=== PATIENT | male | born 2000 | race Caucasian/White ===

== ENCOUNTER 2020-11-21 00:21 | Emergency (ER) | payer BC ==
[~2020-11-21] VITALS: Ht 193 cm; Wt 114.0 kg
== END 2020-11-21 03:27 | disposition home or self-care (01) ==
LOC: ED 00:21
DX: U07.1 COVID-19 (principal); F17.200 Nicotine dependence, unspecified, uncomplicated

== ENCOUNTER 2022-12-08 03:07 | Emergency (ER) | payer BC ==
[~2022-12-08] VITALS: Ht 187.9 cm; Wt 142.9 kg
[2022-12-08 03:34] LABS: BASO # 0.1 10*3/uL (0.0-0.1); BASO % 0.6 % (0.0-1.0); EOS # 0.3 10*3/uL (0.0-0.4); EOS % 3.2 % (1.0-4.0); HEMATOCRIT 46.4 % (42.0-52.0); LYMPH # 3.3 10*3/uL (1.3-4.4); LYMPH % 36.8 % (27.0-41.0); MEAN CELL VOLUME 89.4 fl (80.0-94.0); MEAN CORPUSCULAR HGB 31.2 pg (27.0-31.0); MEAN CORPUSCULAR HGB CONC 34.9 g/dl (33.0-37.0); MEAN PLATELET VOLUME 10.5 fl (9.6-12.3); MONO # 0.9 10*3/uL (0.1-1.0); MONO % 10.2 % (3.0-9.0); NEUT # 4.3 10*3/uL (2.3-7.9); PLATELET COUNT AUTOMATED 284 10*3/uL (130-400); RED BLOOD COUNT 5.19 10*6/uL (4.50-5.90); RED CELL DISTRI WIDTH 12.7 % (0-14.5); WHITE BLOOD COUNT 8.8 10*3/uL (4.8-10.8)
[2022-12-08 03:45] LABS: ACT PARTIAL THROMBO TIME 26.7 SECONDS (20.0-32.1)
[2022-12-08 03:59] LABS: ALKALINE PHOSPHATASE 75 U/L (46-116); BUN 9 mg/dl (9-23); CHLORIDE 106 mmol/L (98-107); LIPASE 36 U/L (12-53); POTASSIUM 3.6 mmol/L (3.4-5.1); SGPT/ALT 43 U/L (5-49); TOTAL PROTEIN 7.5 gm/dL (6.0-8.0)
[2022-12-08] MEDS ORDERED: MELOXICAM15 MG PO ×2 (06:09→06:12)
== END 2022-12-08 06:16 | disposition home or self-care (01) ==
LOC: ED 03:07
PROVIDERS: Internal Medicine
DX: M94.0 Chondrocostal junction syndrome [Tietze] (principal); M79.601 Pain in right arm; M54.9 Dorsalgia, unspecified; R07.89 Other chest pain

== ENCOUNTER 2023-09-26 05:12 | Emergency (ER) | payer BC ==
[~2023-09-26] VITALS: Ht 187.9 cm; Wt 131.5 kg
[~2023-09-26 05:12] MED LIST: MELOXICAM15 MG PO
[2023-09-26] MEDS ORDERED: MG-AL HYDROXIDE/SIMETICONE 30 ML UDC PO STA (05:37)
[2023-09-26] MEDS ORDERED: Lidocaine Hydrochloride 15 ML UDC PO STA (05:37)
[2023-09-26] MEDS ORDERED: Dicyclomine Hydrochloride 20 MG/10 ML OSYR PO STA (05:37)
[2023-09-26] MEDS ORDERED: SODIUM CHLORIDE 0.9% 1,000 ML IV ONE (06:40)
[2023-09-26] MEDS ORDERED: MORPHINE Sulfate 2 MG/ML SYR IV ONE (06:50)
[2023-09-26 06:58] LABS: BASO % 0.3 % (0.0-1.0); EOS # 0.2 10*3/uL (0.0-0.4); EOS % 1.7 % (1.0-4.0); LYMPH # 1.8 10*3/uL (1.3-4.4); LYMPH % 19.4 % (27.0-41.0); MEAN CELL VOLUME 87.5 fl (80.0-94.0); MEAN CORPUSCULAR HGB 30.2 pg (27.0-31.0); MEAN CORPUSCULAR HGB CONC 34.5 g/dl (33.0-37.0); MEAN PLATELET VOLUME 10.4 fl (9.6-12.3); MONO # 0.8 10*3/uL (0.1-1.0); MONO % 8.3 % (3.0-9.0); NEUT # 6.4 10*3/uL (2.3-7.9); PLATELET COUNT AUTOMATED 265 10*3/uL (130-400); RED BLOOD COUNT 5.37 10*6/uL (4.50-5.90); RED CELL DISTRI WIDTH 12.5 % (0-14.5); WHITE BLOOD COUNT 9.1 10*3/uL (4.8-10.8)
[2023-09-26] MEDS ORDERED: IOHEXOL 300 MG/ML 100 ML VIAL IV ONE (07:00)
[2023-09-26 07:18] LABS: ALKALINE PHOSPHATASE 75 U/L (46-116); BUN 10 mg/dl (9-23); CHLORIDE 104 mmol/L (98-107); LIPASE 30 U/L (12-53); POTASSIUM 3.3 mmol/L (3.4-5.1); SGPT/ALT 43 U/L (5-49); TOTAL PROTEIN 7.8 gm/dL (6.0-8.0)
[2023-09-26] MEDS ORDERED: KETOROLAC10 MG PO (08:15)
[2023-09-26] MEDS ORDERED: diphenhydrAMINE hydrochloride 50 MG/ML VIAL IV ONE (08:15)
[2023-09-26] MEDS ORDERED: REGLAN10 M1 PO (08:15)
[2023-09-26] MEDS ORDERED: Metoclopramide Hydrochloride 10 MG/2 ML AMP IV ONE (08:15)
[2023-09-26] MEDS ORDERED: Ketorolac Tromethamine 15 MG/ML VIAL IV ONE (08:15)
== END 2023-09-26 08:23 | disposition home or self-care (01) ==
LOC: ED 05:12
PROVIDERS: Internal Medicine
DX: K80.20 Calculus of gallbladder without cholecystitis without obstruction (principal); R11.2 Nausea with vomiting, unspecified; K21.9 Gastro-esophageal reflux disease without esophagitis; Z87.891 Personal history of nicotine dependence

== ENCOUNTER 2023-11-03 05:20 | Observation (INO) | payer BC ==
[~2023-11-03] VITALS: Ht 190.5 cm; Wt 140.6 kg
[2023-11-03] VITALS (7 sets, daily range): BP systolic 120–161; BP diastolic 54–93
[~2023-11-03 05:20] MED LIST changes: +KETOROLAC10 MG PO; +REGLAN10 M1 PO
[2023-11-03] MEDS ORDERED: HYDROmorphONE Hydrochloride 0.5 MG/0.5 ML SYRINGE IV ONE ×2 (05:40→06:30)
[2023-11-03] MEDS ORDERED: Ondansetron Hydrochloride 4 MG/2 ML VIAL IV ONE ×2 (05:40→06:35)
[2023-11-03 06:09] LABS: BASO # 0.1 10*3/uL (0.0-0.1); BASO % 0.4 % (0.0-1.0); EOS # 0.1 10*3/uL (0.0-0.4); EOS % 0.4 % (1.0-4.0); HEMATOCRIT 49.5 % (42.0-52.0); LYMPH # 1.6 10*3/uL (1.3-4.4); LYMPH % 12.2 % (27.0-41.0); MEAN CELL VOLUME 88.4 fl (80.0-94.0); MEAN CORPUSCULAR HGB 30.4 pg (27.0-31.0); MEAN CORPUSCULAR HGB CONC 34.3 g/dl (33.0-37.0); MEAN PLATELET VOLUME 10.6 fl (9.6-12.3); MONO # 0.7 10*3/uL (0.1-1.0); MONO % 5.8 % (3.0-9.0); NEUT # 10.2 10*3/uL (2.3-7.9); NEUT % 79.6 % (47.0-73.0); PLATELET COUNT AUTOMATED 335 10*3/uL (130-400); RED CELL DISTRI WIDTH 12.7 % (0-14.5); WHITE BLOOD COUNT 12.9 10*3/uL (4.8-10.8)
[2023-11-03 06:18] LABS: ALKALINE PHOSPHATASE 86 U/L (46-116); BUN 8 mg/dl (9-23); CHLORIDE 104 mmol/L (98-107); LIPASE 28 U/L (12-53); POTASSIUM 3.8 mmol/L (3.4-5.1); SGPT/ALT 38 U/L (5-49); TOTAL PROTEIN 8.1 gm/dL (6.0-8.0)
[2023-11-03] MEDS ORDERED: Piperacillin Sodium/Tazobact 50 ML IV ONE (06:55)
[2023-11-03] MEDS ORDERED: SODIUM CHLORIDE 0.9% 1,000 ML IV ONE (06:55)
[2023-11-03] MEDS ORDERED: MORPHINE Sulfate 2 MG/ML SYR IV PRN (07:40)
[2023-11-03] MEDS ORDERED: ceFAZolin sodium/sodium chlor 20 ML IV SCH (07:45)
[2023-11-03] MEDS ORDERED: BUPIVACAINE 0.5% 30 ML IV ONE (08:25)
[2023-11-03] MEDS ORDERED: ceFAZolin sodium/sodium chlor 20 ML IV ONE (08:26)
[2023-11-03] MEDS ORDERED: ACETAMINOPHEN 100 ML IV ONE (09:36)
[2023-11-03] MEDS ORDERED: ceFAZolin sodium/sodium chlor 10 ML IV ONE (09:41)
[2023-11-03] MEDS ORDERED: Lactated Ringer's Solution 1,000 ML IV ONE (10:14)
[2023-11-03] MEDS ORDERED: HYDROmorphONE Hydrochloride 0.5 MG/0.5 ML SYRINGE IV PRN (11:30)
[2023-11-03] MEDS ORDERED: HYDROCODONE-AC1 EAC1 PO (12:28)
[2023-11-04] MEDS ORDERED: ROCURONIUM BROMIDE 50 MG/5 ML SYRINGE IV ONE (09:43)
[2023-11-04] MEDS ORDERED: Lidocaine Hydrochloride 5 ML VIAL IV ONE (09:43)
[2023-11-04] MEDS ORDERED: Ondansetron Hydrochloride 4 MG/2 ML VIAL IV ONE (09:43)
[2023-11-04] MEDS ORDERED: fentaNYL CITRATE 100 MCG/2 ML VIAL IV ONE (09:43)
[2023-11-04] MEDS ORDERED: Succinylcholine Chloride 200 MG/10 ML SYRINGE IV ONE (09:43)
[2023-11-04] MEDS ORDERED: Ketamine Hydrochloride 500 MG/10 ML VIAL IV ONE (09:43)
[2023-11-04] MEDS ORDERED: SUGAMMADEX SODIUM 200 MG/2 ML VIAL IV ONE (09:43)
[2023-11-04] MEDS ORDERED: Midazolam Hydrochloride 2 MG/2 ML VIAL IV ONE (09:43)
[2023-11-04] MEDS ORDERED: Dexamethasone Sodium Phospha 4 MG/ML VIAL IV ONE (09:43)
[2023-11-04] MEDS ORDERED: SEVOFLURANE 250 ML BOT INH ONE (09:43)
[2023-11-04] MEDS ORDERED: PROPOFOL 200 MG/20 ML VIAL IV ONE (09:43)
== END 2023-11-03 08:00 | disposition home or self-care (01) ==
LOC: ED 05:20 → EDHOLD 07:01
PROVIDERS: Internal Medicine; ADMIT Internal Medicine; ATTEND Internal Medicine
DX: K80.20 Calculus of gallbladder without cholecystitis without obstruction (principal); D72.829 Elevated white blood cell count, unspecified; R11.2 Nausea with vomiting, unspecified; Z79.899 Other long term (current) drug therapy